=== PATIENT | female | born 1945 | race Caucasian/White ===

== ENCOUNTER 2020-03-23 10:28 | Emergency (ER) | payer OTHER, BC ==
[~2020-03-23] VITALS: Ht 162.6 cm; Wt 72.6 kg
[2020-03-23 10:43] VITALS: Ht 162.6 cm; Wt 72.6 kg
[2020-03-23 14:08] VITALS: BP 134/83
== END 2020-03-23 14:08 | disposition home or self-care (01) ==
LOC: ED 10:28
DX: S51.812A Laceration without foreign body of left forearm, initial encounter (principal); S40.012A Contusion of left shoulder, initial encounter; S50.02XA Contusion of left elbow, initial encounter; Z88.1 Allergy status to other antibiotic agents; Z88.5 Allergy status to narcotic agent; V80.010A Animal-rider injured by fall from or being thrown from horse in noncollision accident, initial encounter; Y93.89 Activity, other specified; Y92.89 Other specified places as the place of occurrence of the external cause; Y99.8 Other external cause status
CPT/HCPCS: 90715; J2001; J2405; J2543; J3010; J7030